=== PATIENT | male | born 1950 | race Caucasian/White ===

== ENCOUNTER 2016-08-15 07:30 | Inpatient (IN) | payer OTHER ==
--- NOTE | 2016-08-09 08:05 | PREOPHP ---
DATE OF ADMISSION: 08/15/2016 PREOPERATIVE MEDICAL CONSULTATION SCHEDULED DATE OF SURGERY: 08/15/[address] Harjinder Baugh. Dear Dr. Baugh: Thank you very much for allowing me to participate in the care of Mr. Reyna . HISTORY OF PRESENT ILLNESS: He is a 66-year-old gentleman who has had prior spinal surgery and has persistent symptoms. He is being brought in electively for spinal stenosis surgery and laminectomy at L3-L4 bilaterally, L4-L5 on left-hand side. He has failed all conservative attempts at treatment . PAST MEDICAL HISTORY: 1. Lumbar spinal stenosis. 2. Sciatica. 3. Migraine syndrome. 4. Hypertension. 5. BPH. 6. Usual childhood diseases. 7. History of hepatitis B -- chronic -- carrier state. 8. Status post lumbar spine surgery x2. 9. Status post left hand palmar ganglion cyst. 10. Status post right ankle fracture. 11. Status post right wrist fracture. 12. Status post right olecranon dislocation. ALLERGIES: HE HAS NO KNOWN MEDICAL ALLERGIES. MEDICATIONS: 1. Excedrin on a p.r.n. basis. 2. Metoprolol 50 mg a day. 3. Doxazosin 2 mg at bedtime. HABITS: He quit smoking in 1971. No alcohol since 1984. No history of IV drug abuse. SOCIAL HISTORY: He was born in [facility] and raised here. He has 1 year of college and h ad served in the [employer], but is not [employer] eligible. He has been for 45 years and l rafael with his spouse and daughter and grandson. He is retired from hospital security. He has 3 dog s and a pet cat. FAMILY HISTORY: Negative for coronary artery disease. Positive for hypertension. Positive for norah betes. Negative for stroke. Negative for asthma. Negative for glaucoma. Negative for migraine. Negative for colon cancer. Negative for prostate cancer. Negative for anesthesia reactions. REVIEW OF SYSTEMS: HEAD AND EYES: Notable for her headaches which he gets 2 to 3 per week, otherwise negative. ENT: Negative. RESPIRATORY: Negative. CARDIAC: Negative. He is able to climb 3 flights of stairs if he is careful about it. GASTROINTESTINAL: Notable for the chronic hepatitis B and otherwise negative. HEMATOLOGIC: Negative. UROLOGIC: Notable for symptoms of BPH with an AUA score of 8. PSYCHIATRIC: Negative. ENDOCRINE: Negative. NEUROLOGIC: Notable for sciatica, otherwise negative. GENERAL: No weight change, no fever, chills or sweats. No changing skin lesions. PHYSICAL EXAMINATION: VITAL SIGNS: At the time of physical exam, he has a height of 5 feet 4 inches, weight 217.9 pounds. Blood pressure is 140/70, pulse 80, temperature is 98.4. HEENT: NC/AT, PERRL, EOMI, anicteric. Fundi were not well visualized. Tympanic membranes are with out note; oropharynx demonstrates no lesions. NECK: Supple. There is a midline trachea. There is no thyromegaly. RESPIRATORY: Clear to auscultation and percussion. CARDIAC: Demonstrates no JVD, a regular rate and rhythm without rubs, murmurs, or gallops. ABDOMEN: Soft, nontender, active bowel sounds, no hepatosplenomegaly, no CVA tenderness. Please no te there is no anterior chest wall spider angiomata or other stigmata of cirrhosis. There is no flu id wave. EXTREMITIES: Demonstrate no clubbing, cyanosis, or edema. NEUROLOGIC: As per the dictation of Dr. Baugh. LABORATORIES: Sodium 143, potassium 3.6, chloride 97, bicarbonate 31, BUN 15, creatinine 1.1, rando m blood sugar postprandial 124. White count 6.7, hemoglobin 15.3, hematocrit 47, platelet count 259 . Pro time 11.3 with an INR of 1.95, PTT is 24 seconds. Urinalysis is 1.030, pH is 5.5, small bili abdul, trace ketones, trace blood, 1+ protein. EKG demonstrates sinus rhythm at 93 with intervals 0 .16, 0.12 0.44, normal morphology. Chest x-ray demonstrated adequate technique, normal cardiac size and silhouette. Normal bones and soft tissue and normal lungs. ASSESSMENT AND PLAN: 1. Preoperative medical consultation prior to lumbar spine surgery. At this time, I find Mr. Alberto osorio and an acceptable surgical candidate and concur with your plans to proceed with surgery. He is at average surgical risk as compared to his age-matched peers and should do well using standard and routine anesthesia precautions. Using modified Castanon criteria, he is at intermediate or average surgical risk. 2. Migraine syndrome. He is off of the beta alfonso resuming that for his blood pressure and for h is migraine syndrome future consideration for topiramate after surgery has been completed can be con sidered. 3. BPH. He has been placed on doxazosin for this. Dictated By: CHEYANNE CAZARES MD, JR/NTS Conf#: [id number] DID#: [id number] CC: HARJINDER BAUGH MD;*EndCC*
[~2016-08-15] VITALS: Ht 167.6 cm; Wt 96.5 kg
[2016-08-31] VITALS (33 sets, daily range): BP systolic 142–177; BP diastolic 77–99; PULSE 65–94; RESP 11–21; Ht 167.6 cm; Wt 96.5 kg
[2016-08-31] MEDS ORDERED: CEFAZOLIN 2 GM/50 ML (PMX) 50 ML IVPB ONE (06:00)
[2016-08-31] MEDS ORDERED: NACL 0.9% 3 ML SYG IV SCH ×2 (06:00→11:00)
[2016-08-31] MEDS ORDERED: LACTATED RINGER'S 1,000 ML IV* SCH (06:00)
[2016-08-31] MEDS ORDERED: METO-407 PO (06:50)
[2016-08-31] MEDS ORDERED: DOXA2TAB PO (06:50)
[2016-08-31] MEDS ORDERED: HYDR-902 PO (06:50)
[2016-08-31] MEDS ORDERED: SURGIFOAM POWDER 1 GM KIT ONE (07:02)
[2016-08-31] MEDS ORDERED: BUPIVACAINE 0.25% (MPF) 30 ML INJ ONE (07:02)
[2016-08-31] MEDS ORDERED: GELATIN SIZE 100 SPONGE ONE (07:02)
[2016-08-31] MEDS ORDERED: THROMBIN 5000 UNIT VIAL ONE (07:02)
[2016-08-31] MEDS ORDERED: BUPIVACAINE 0.25%/EPI (SDV) 30 ML INJ ONE (07:02)
[2016-08-31] MEDS ORDERED: POLYMYXIN/BACITRACIN 1L IRRIG ONE (07:06)
--- NOTE | 2016-08-31 07:07 | HPN ---
Date/Time of Note Date/Time of Note DATE: 08/31/16 TIME: 07:07 Interval H&P Admission Note Pt. seen H&P reviewed: No system changes YASMIN BAUGH MD Aug 31, 2016 07:07
[2016-08-31] MEDS ORDERED: DEXAMETHASONE 4 MG/ML 1 ML INJ ONE ×2 (07:26→07:28)
[2016-08-31] MEDS ORDERED: EPHEDrine SULFATE 50 MG/5 ML SYG ONE (07:26)
[2016-08-31] MEDS ORDERED: ONDANSETRON 4 MG INJ ONE (07:26)
[2016-08-31] MEDS ORDERED: MIDAZOLAM 1 MG/ML 2 ML INJ ONE (07:26)
[2016-08-31] MEDS ORDERED: ROCURONIUM 50 MG INJ ONE (07:26)
[2016-08-31] MEDS ORDERED: PROPOFOL 20 ML ONE (07:26)
[2016-08-31] MEDS ORDERED: SUCCINYLCHOLINE CHLORIDE 100 MG/5 ML SYG IV ONE (07:26)
[2016-08-31] MEDS ORDERED: PROPOFOL 100 ML ONE (07:26)
[2016-08-31] MEDS ORDERED: CEFAZOLIN 1 GM INJ ONE (07:28)
[2016-08-31] MEDS ORDERED: MEPERIDINE 25 MG INJ IV PRN (09:30)
[2016-08-31] MEDS ORDERED: HYDROmorphONE (0.2 MG/ML) 10ML SYG IV PRN ×3 (09:30)
[2016-08-31] MEDS ORDERED: ONDANSETRON 4 MG INJ IV PRN ×2 (09:30→17:30)
[2016-08-31] MEDS ORDERED: EPHEDrine SULFATE 50 MG/5 ML SYG IV PRN (09:30)
[2016-08-31] MEDS ORDERED: FENTAnyl 50 MCG/ML VIAL IV PRN (09:30)
[2016-08-31] MEDS ORDERED: DIPHENHYDRAMINE 50 MG INJ IV PRN (09:30)
[2016-08-31] MEDS ORDERED: MIDAZOLAM 1 MG/ML 2 ML INJ IV PRN (09:30)
[2016-08-31] MEDS ORDERED: NEOSTIGMINE 3 MG/3 ML SYRINGE ONE (10:37)
[2016-08-31] MEDS ORDERED: GLYCOPYRROLATE 1 MG INJ ONE (10:37)
[2016-08-31] MEDS ORDERED: PROCHLORPERAZINE 10 MG TAB PO PRN (11:00)
[2016-08-31] MEDS ORDERED: HYDROCODONE/APAP (5/325) TAB PO PRN (11:00)
--- NOTE | 2016-08-31 12:49 | PN ---
Date/Time of Note Date/Time of Note DATE: 08/31/16 TIME: 12:45 Assessment/Plan VTE Prophylaxis VTE Prophylaxis Intervention: SCD's Lines/Catheters IV Catheter Type (from Nrsg): Saline Lock Urinary Cath still in place: Yes Reason Cath still needed: other (indicate) (immediately post op) Assessment/Plan Problems: (1) Status post lumbar laminectomy Onset Date: ~ 08/31/2016 Status: Acute Comment: ImmediaTely post op and without evidence of unexpected issues. Proceeed with recovery plans (2) BPH (benign prostatic hypertrophy) with urinary retention Status: Chronic Comment: Continue with alpha blockade, bains to morning then see how he does (3) Essential (primary) hypertension Status: Chronic Comment: Continue Beta blockade and increase alpha block as tolerated (4) Lumbar disc disease with radiculopathy Status: Chronic Comment: Appears successful. Subjective 24 Hr Interval Summary Free Text/Dictation seen in PACU post op. No complaints Constitutional: no complaints Respiratory: no complaints Cardiovascular: no complaints Gastrointestinal: no complaints Musculoskeletal: back pain Neurologic: no complaints Exam/Review of Systems Vital Signs Vitals Vital Signs Date Time Temp Pulse Resp B/P Pulse Ox O2 Delivery O2 Flow Rate FiO2 08/31/16 12:34 84 17 162/85 98 Nasal Cannula 2.0 08/31/16 12:31 98.4 Exam Constitutional: alert, oriented Neck: non-tender, supple Respiratory: clear to auscultation, normal air movement Cardiovascular: nl pulses, regular rate and rhythm Gastrointestinal: nl liver, spleen, non-tender, soft Extremities: other (moves extremity woithout issue) Neurological: nl strength Medications Medications Current Medications Lactated Ringer's 1,000 ml @ 25 mls/hr Q24H IV* ; Start 08/31/16 at 06:00; Stop 09/01/16 at 21:59 Dextrose/Sodium Chloride (D5-1/2ns) 1,000 ml @ 100 mls/hr Q10H IV ; Start at 10:52 Acetaminophen/ Hydrocodone Bitart 2 tab 2 tab Q4H PRN PO PAIN LEVEL 6-10; Start 08/31/16 at 11:00 Cefazolin Sodium (Ancef 1 Gm/50 ml (Pmx)) 50 ml @ 100 mls/hr Q6 IVPB ; Start at 12:00; Stop 09/01/16 at 06:29 Prochlorperazine (Compazine) 10 mg Q4H PRN PO NAUSEA AND/OR VOMITING; Start 08/31/16 at 11:00 Docusate Sodium (Colace) 100 mg BID PO ; Start 09/01/16 at 09:00 Hydromorphone HCl (Dilaudid [employer]BER) Q4PCA IV ; Start 08/31/16 at 11:00 Doxazosin Mesylate (Cardura) 4 mg HS PO ; Start 08/31/16 at 21:00; Status UNV Metoprolol Succinate (Toprol Xl) 50 mg QHS PO ; Start 08/31/16 at 21:00; Status UNV CHEYANNE CAZARES MD Aug 31, 2016 12:49
[2016-08-31] MEDS: HYDROmorphONE 0.2 MG/ML PCA IV SCH (13:07)
--- NOTE | 2016-08-31 13:45 | RADRPT ---
PROCEDURE: Intraoperative imaging of the lumbar spine with fluoroscopy. CLINICAL INDICATION: Back pain. Intraoperative. TECHNIQUE: 3 images of the lumbar spine were obtained in the operating room with an image intensif ier. No radiologist was in attendance. 18 seconds of fluoroscopy time was used. COMPARISON: No prior study is available for comparison. FINDINGS: Images demonstrate surgical instruments overlying the lower lumbar spine. IMPRESSION: 1. Intraoperative imaging of the lumbar spine. RPTAT: QQ .Trevor Dawn MD, MD Date Time Electronically viewed and signed by .Trevor Dawn MD, MD on 08/31/2016 13:44 .R/
[2016-08-31] MEDS: DEXTROSE 5%-0.45% NACL 1,000 ML IV SCH ×2 (14:47→21:00)
[2016-08-31] MEDS: CEFAZOLIN 1 GM/50 ML (PMX) 50 ML IVPB SCH ×3 (14:47→23:59)
--- NOTE | 2016-08-31 17:48 | OPPN ---
Date/Time of Note Date/Time of Note DATE: 08/31/16 TIME: 17:46 Operative/Procedure Note Pre-Operative Diagnosis L3-L4 Spinal Stenosis Post-Operative Diagnosis Same Procedure Minimally invasive bilateral laminectomy L3-L4 from right paralumbar approach. Continuous of microscope SSEP monitoring, continuous. Surgeon: YASMIN BAUGH MD Corporate Fitness Program Coordinator: DELLA PARK MD Findings Spinal stenosis, L4-L4 Blood Usage/Administration None Implants/Grafts: Not applicable Estimated blood loss: 10 - 50 ml's Drains: Not applicable Specimens: Not Applicable Complications: None Anesthesia type: general YASMIN BAUGH MD Aug 31, 2016 17:48
--- NOTE | 2016-08-31 18:07 | OPR ---
Date/Time of Note Date/Time of Note DATE: 08/31/16 TIME: 17:49 Operative Report Procedure Date: Aug 31, 2016 Preoperative Diagnosis Spinal stenosis, L3-L4 Postoperative Diagnosis Spinal stenosis, L3-L4 Operation Performed Minimally invasive bilateral lumbar laminectomy L3-L4 from right paralumbar approach Surgeon: YASMIN BAUGH MD Fish Grader: DELLA PARK MD Anesthesia: general Estimated Blood Loss: 0 - 10 ml's Complications: None Pt Condition Post Procedure: stable Indications Intractable neurogenic claudication from spinal stenosis, L3-L4 Operative Findings Spinal stenosis, L3-L4 Procedure Description the patient was identified in the holding unit and his questions were answered. He was taken to the operating room and given a general anesthetic. Lines and electrodes were placed. He was placed prone and the Manuelito four smelter charger. Time out was done. C-arm was used to ruby the location of the right L3-L4 facet and 25 mm incision was made 4 cm lateral to the midline. The fascia was incised and blunt dissection was used to find the right L3-L4 facet. Sequential dilators were placed over the facet. Biplane radiography was used to confirm location. Metrx 7 cm retractor was inserted and placed in position. Electrocautery was used to denude facet of soft tissue. Drill was used to osteotomize the IAP from the pars to the medial aspect and the IAP was removed en bloc. Drill used to remove portions of the superior facet, distally, laterally and proximally, and drill was used to remove lamina well across the midline. Please note that the spinous process had been removed at the time of a prior procedure, either at L4-5 or L2-L3, but that midline location could easily be identified. The laminectomy was taken across the midline until the left pedicle of L4 could easily be palpated. Drilling was taken proximally to the top of the foramen. The ligamentum flavum was then removed piecemeal. All directions, proximal to the superior most aspect of the foramina, laterally on the right to well into the foramen, on the left to the pedicle, and inferiorly to the lamina of L4, were inspected. A small quantity of Marcaine with epinephrine was applied to the thecal sac, followed by a thin layer of Surgiflow. The muscles were infiltrated with Marcaine. The retractor was removed, and on the way out, careful inspection was made for bleeders in the muscle belly. Bipolar was used. Number 1 Vicryl pop offs were used for the fascia. 2-0 was used for the subcutaneous. 4-0 monocryl reinforeced with dermabond was used for the skin. The EBL was 25 cc. The counts were reported as correct. The wound was dressed, and the patient returned to the supine position and extubated. Spinal monitoring was reported as having improved to normal. YASMIN Steinberg MD Aug 31, 2016 18:07
[2016-08-31] MEDS ORDERED: DOXAZOSIN 4 MG TAB PO SCH (21:00)
[2016-08-31] MEDS ORDERED: METOPROLOL (XL) 50 MG TAB PO SCH (21:00)
[2016-08-31 23:44] LABS: HEPATITIS B CORE ANTIBODY REACTIVE (NEGATIVE)
[2016-09-01] MEDS: DEXTROSE 5%-0.45% NACL 1,000 ML IV SCH (01:10)
[2016-09-01] MEDS: HYDROmorphONE 0.2 MG/ML PCA IV SCH (02:09)
[2016-09-01] MEDS: CEFAZOLIN 1 GM/50 ML (PMX) 50 ML IVPB SCH (05:20)
[2016-09-01 05:31] VITALS: BP 135/78; PULSE 67; RESP 20
[2016-09-01] MEDS ORDERED: DOCUSATE SODIUM 100 MG CAP PO SCH (09:00)
[2016-09-01 09:24] VITALS: BP 117/75; RESP 20
--- NOTE | 2016-09-01 12:12 | PN ---
Date/Time of Note Date/Time of Note DATE: 09/01/16 TIME: 12:10 Assessment/Plan Lines/Catheters IV Catheter Type (from Nrsg): Peripheral IV Tolentino in Place (from Nrsg): Yes Subjective 24 Hr Interval Summary Seeing patient for Dr. Pacheco. Patient is postop day #1 from lumbar decompression. He is doing well, he has been up ambulating with PT. Back pain is well controlled with [employer] SALESPERSON, this will be discontinued and he will be started on oral meds. He denies any leg pain. Neurovascular structures are intact. Vital signs are stable. Patient like to be discharged later today. He may be discharged if cleared by physical therapy and Internal Medicine. Exam/Review of Systems Vital Signs Vitals Vital Signs Date Time Temp Pulse Resp B/P Pulse Ox O2 Delivery O2 Flow Rate FiO2 09/01/16 09:24 98.0 60 20 117/75 99 09/01/16 05:31 Nasal Cannula 2.0 Intake and Output 08/31/16 08/31/16 09/01/16 15:00 23:00 07:00 Intake Total 950 ml 930 ml 1400 ml Output Total 125 ml 460 ml 1000 ml Balance 825 ml 470 ml 400 ml CAROL ANN REBOLLEDO Sep 01, 2016 12:11
--- NOTE | 2016-09-01 14:01 | PN ---
Date/Time of Note Date/Time of Note DATE: 09/01/16 TIME: 14:00 Assessment/Plan VTE Prophylaxis VTE Prophylaxis Intervention: SCD's Lines/Catheters IV Catheter Type (from Nrsg): Peripheral IV Urinary Cath still in place: Yes Reason Cath still needed: other (indicate) (Discontinue Tolentino catheter today) Assessment/Plan Problems: (1) BPH (benign prostatic hypertrophy) with urinary retention Status: Chronic Comment: Discontinue Tolentino catheter today. (2) Status post lumbar laminectomy Onset Date: ~ 08/31/2016 Status: Acute Comment: Doing well postoperatively (3) Essential (primary) hypertension Status: Chronic Comment: Well-controlled Subjective 24 Hr Interval Summary Free Text/Dictation Patient reports pain at the site of the incision and otherwise he is doing well and especially his legs do not have symptoms Constitutional: no complaints (Denies fever chills or sweats) Respiratory: no complaints (Denies shortness of breath) Cardiovascular: no complaints (Denies chest pain or palpitation) Exam/Review of Systems Vital Signs Vitals Vital Signs Date Time Temp Pulse Resp B/P Pulse Ox O2 Delivery O2 Flow Rate FiO2 09/01/16 09:24 98.0 60 20 117/75 99 09/01/16 05:31 Nasal Cannula 2.0 Intake and Output 08/31/16 08/31/16 09/01/16 15:00 23:00 07:00 Intake Total 950 ml 930 ml 1400 ml Output Total 125 ml 460 ml 1000 ml Balance 825 ml 470 ml 400 ml Exam Constitutional: alert, oriented Respiratory: clear to auscultation, normal air movement Cardiovascular: nl pulses, regular rate and rhythm Results Results 24 hrs Laboratory Tests Test 08/31/16 19:39 HIV (1&2) Antibody NEGATIVE Hepatitis A Antibody Total NEGATIVE Hepatitis B Core Total Antibody REACTIVE H Hepatitis B Surface Antibody POSITIVE H Hepatitis B Surface Antigen NEGATIVE Hepatitis C Antibody NEGATIVE Medications Medications Current Medications Acetaminophen/ Hydrocodone Bitart ([place]aron (5/325)) 2 tab Q4H PRN PO PAIN LEVEL 6 -10; Start 08/31/16 at 11:00 Prochlorperazine (Compazine) 10 mg Q4H PRN PO NAUSEA AND/OR VOMITING Last administered on 08/31/16t 16:39; Admin Dose 10 MG; Start 08/31/16 at 11:00 Docusate Sodium (Colace) 100 mg BID PO Last administered on 09/01/16 08:48; Admin Dose 100 MG; Start 09/01/16 at 09:00 Doxazosin Mesylate (Cardura) 4 mg HS PO Last administered on 08/31/16 20:35; Admin Dose 4 MG; Start 08/31/16 at 21:00 Metoprolol Succinate (Toprol Xl) 50 mg QHS PO Last administered on 08/31/16 20: 34; Admin Dose 50 MG; Start 08/31/16 at 21:00 Ondansetron HCl (Zofran Inj) 4 mg Q6H PRN IV NAUSEA AND/OR VOMITING Last administered on 09/01/16 03:34; Admin Dose 4 MG; Start 08/31/16 at 17:30 CHEYANNE CAZARES MD Sep 01, 2016 14:01
--- NOTE | 2016-09-05 11:57 | DS ---
Date/Time of Note Date/Time of Note DATE: 09/05/16 TIME: 11:56 Discharge Summary Admission/Discharge Info Admit Date/Time Aug 31, 2016 at 05:33 Discharge Date/Time Sep 01, 2016 at 17:10 Final Diagnosis L3-L4 Spinal Stenosis Patient Condition: Fair Hospital Course Pt did well during his hospital stay. His pain was well controlled. His diet and activity were advanced as tolerated. He was discharged to home in good condition on POD #1 Home Meds Reported Medications Hydrocodone/Acetaminophen ([place] 10-325 Tablet) 1 Each Tablet, 1 EACH PO Q8 for PAIN LEVEL 1-5, TAB 08/31/16 Doxazosin Mesylate* (Doxazosin Mesylate*) 2 Mg Tablet, 2 MG PO HS, TAB 08/31/16 Metoprolol Tartrate* (Lopressor*) 100 Mg Tablet, 100 MG PO QHS, #60 TAB 08/31/16 Pending Labs Laboratory Tests Test 09/05/16 09:43 Lab Scanned Report REFERENCE [id number] CAROL ANN REBOLLEDO Sep 05, 2016 11:57
== END 2016-09-01 17:10 | disposition home or self-care (01) | DRG 517 ==
LOC: REC 08-31 05:33 → MS1 08-31 12:56
PROVIDERS: ADMIT Specialist; ATTEND Specialist
PROC: 01NB0ZZ Release Lumbar Nerve, Open Approach (ICD-10-PCS; principal; 2016-08-31 07:30)
DX: M51.16 Intervertebral disc disorders with radiculopathy, lumbar region (principal); I10 Essential (primary) hypertension; N40.1 Benign prostatic hyperplasia with lower urinary tract symptoms; R33.8 Other retention of urine
CPT/HCPCS: 72110; 86692; 86703; 86704; 86706; 86708; 86709; 86803; 86850; 86900; 86901; 87086; 87340; 97116; 97163; 97530; J0330; J0690; J1100; J1170; J1644; J2250; J2405; J2710; J3010; J7042; J7120